=== PATIENT | male | born 1980 | race American Indian/Alaskan Native ===

== ENCOUNTER 2017-02-01 08:25 | Outpatient (CLI) | payer OTHER ==
--- NOTE | 2017-02-01 09:43 | XRay Report ---
ROUTINE CHEST, TWO VIEWS: HISTORY: Hypertension, secondary hyperparathyroidism. The trachea, heart, mediastinal contour, lung osei and bony thorax are unremarkable. IMPRESSION: Unremarkable chest x-ray.
== END 2017-02-01 08:26 | disposition home or self-care (01) ==
LOC: XRAY 08:25
PROVIDERS: ATTEND Internal Medicine Nephrology
DX: I12.0 Hypertensive chronic kidney disease with stage 5 chronic kidney disease or end stage renal disease (principal); N18.6 End stage renal disease; N25.81 Secondary hyperparathyroidism of renal origin
CPT/HCPCS: 71020